=== PATIENT | female | born 1985 | race Caucasian/White ===

== ENCOUNTER → 2024-01-29 08:01 | Outpatient (REF) | payer BC, SELFPAY ==
[2024-01-29 10:17] LABS: % Basophils 0.6 % (0-2); % Eosinophils 1.6 % (0-6); % Immature Granulocytes 0.2 % (0-0.5); % Lymphocytes 29.3 % (20.5-51.1); % Monocytes 7.4 % (1.7-9.3); % Neutrophils 60.9 % (42.2-75.2); Absolute Eosinophils 0.1 10^3/uL (0-0.7); Absolute Lymphocytes 1.5 10^3/uL (1.2-3.4); Absolute Monocytes 0.4 10^3/uL (0.1-0.6); Absolute Neutrophils 3.1 10^3/uL (1.4-6.5); Hematocrit 37.9 % (37.0-47.0); Hemoglobin 13.7 g/dL (12.0-16.0); Mean Corp Hgb Conc. 36.1 g/dL (33.0-37.0); Mean Corpuscular Hgb 34.9 pg (27.0-31.0); Mean Corpuscular Volume 96.4 fL (81.0-99.0); Nucleated Red Blood Cells % 0 %; Platelet Count 206 10^3/uL (130-400); Red Blood Cell Count 3.93 10^6/uL (4.20-5.40); Red Cell Dist. Width 11.4 % (11.5-14.5)
[2024-01-29 11:01] LABS: ALT (SGPT) 25 U/L (0-35); AST (SGOT) 31 U/L (14-36); Albumin 4.9 g/dl (3.5-5.0); Alkaline Phosphatase 48 U/L (38-126); Blood Urea Nitrogen 17 mg/dl (7-17); Calcium 9.7 mg/dl (8.4-10.2); Carbon Dioxide 23 mmol/L (22-30); Chloride 103 mmol/L (98-107); Glucose 97 mg/dl (70-99); HDL Cholesterol 68 mg/dl; LDL Cholesterol, Calculated 125 mg/dl; Potassium 4.2 mmol/L (3.5-5.1); Sodium 142 mmol/L (135-145); Total Bilirubin 0.6 mg/dl (0.2-1.3); Total Cholesterol 210 mg/dl (50-199); Total Protein 7.3 g/dl (6.3-8.2); Triglyceride 87 mg/dl (10-149); Very Low Density Lipoprotein 17 mg/dl (0-30); eGFR > 60.00
[2024-01-29 11:23] LABS: TSH 1.13 uIU/ml (0.47-4.68)
== END ==
LOC: REG 08:01
PROVIDERS: ATTENDING PHYSICIAN Physician Assistant Medical
DX: Z00.00 Encounter for general adult medical examination without abnormal findings (principal)
CPT/HCPCS: 36415; 80053; 80061; 84443; 85025

== ENCOUNTER → 2024-03-26 04:45 | Outpatient (REF) | payer BC, SELFPAY ==
[2024-04-11 08:46] LABS: HPV, High Risk Not Detected; HPV, High Risk Source Cervical
== END ==
LOC: CPAP 04:45
PROVIDERS: ATTENDING PHYSICIAN Nurse Practitioner Family
DX: Z32.01 Encounter for pregnancy test, result positive (principal); Z11.51 Encounter for screening for human papillomavirus (HPV); Z11.3 Encounter for screening for infections with a predominantly sexual mode of transmission
CPT/HCPCS: 87491; 87591; 87624; G0123

== ENCOUNTER → 2024-03-31 15:34 | Outpatient (REF) | payer BC, SELFPAY ==
[2024-03-31 18:00] LABS: % Basophils 0.3 % (0-2); % Eosinophils 0.7 % (0-6); % Immature Granulocytes 0.4 % (0-0.5); % Lymphocytes 22.9 % (20.5-51.1); % Monocytes 5.8 % (1.7-9.3); % Neutrophils 69.9 % (42.2-75.2); Absolute Eosinophils 0.1 10^3/uL (0-0.7); Absolute Lymphocytes 2.1 10^3/uL (1.2-3.4); Absolute Monocytes 0.5 10^3/uL (0.1-0.6); Absolute Neutrophils 6.2 10^3/uL (1.4-6.5); Hematocrit 32.4 % (37.0-47.0); Hemoglobin 11.8 g/dL (12.0-16.0); Mean Corp Hgb Conc. 36.4 g/dL (33.0-37.0); Mean Corpuscular Hgb 33.8 pg (27.0-31.0); Mean Corpuscular Volume 92.8 fL (81.0-99.0); Mean Platelet Volume 9.1 fL (7.4-10.4); Nucleated Red Blood Cells % 0 %; Platelet Count 257 10^3/uL (130-400); Red Blood Cell Count 3.49 10^6/uL (4.20-5.40); Red Cell Dist. Width 11.4 % (11.5-14.5); White Blood Cell Count 8.9 10^3/uL (4.8-10.8)
[2024-03-31 18:06] LABS: Urine Albumin Negative (Neg - Trace); Urine Bilirubin Negative (Negative); Urine Character Clear (Clear); Urine Color Yellow; Urine Glucose Negative (Negative); Urine Ketone Negative (Negative); Urine Leukocyte 1+ (Negative); Urine Nitrite Negative (Negative); Urine Occult Blood Trace (Negative); Urine Specific Gravity 1.005 (<1.030); Urine Urobilinogen Negative (Neg - 1+)
[2024-03-31 18:28] LABS: Urine Squamous Cell 16-20 /LPF (Few)
[2024-03-31 18:29] LABS: Urine Red Blood Cell 0-2 /HPF (0-2)
[2024-03-31 18:31] LABS: Urine Bacteria Few (Negative)
[2024-03-31 18:56] LABS: Hepatitis B Surface Antigen Negative (Negative)
[2024-04-01 14:02] LABS: Glycohemoglobin (HgbA1c) 4.9 % (4.0-5.6)
[2024-04-01 23:33] LABS: Rubella Positive
[2024-04-02 11:33] LABS: HIV Combo Negative (Negative)
[2024-04-02 12:22] LABS: Syphilis/T. pallidum Ab Reflex Negative (Negative)
== END ==
LOC: REG 15:34
PROVIDERS: ATTENDING PHYSICIAN Nurse Practitioner Family; FAMILY PHYSICIAN Family Medicine
DX: Z32.01 Encounter for pregnancy test, result positive (principal); O26.859 Spotting complicating pregnancy, unspecified trimester
CPT/HCPCS: 36415; 76801; 76817; 80055; 81003; 81015; 83036; 84702; 86850; 86900; 86901; 87389

== ENCOUNTER → 2024-04-14 13:17 | Outpatient (REF) | payer BC, SELFPAY | LOC: REG 13:17 | PROVIDERS: ATTENDING PHYSICIAN Student in an Organized Health Care Education/Training Program | DX: O09.522 Supervision of elderly multigravida, second trimester (principal) | CPT/HCPCS: 36415 ==

== ENCOUNTER → 2024-04-16 16:46 | Outpatient (REF) | payer BC, SELFPAY | LOC: CLAB 16:46 | PROVIDERS: ATTENDING PHYSICIAN Dermatology | DX: L30.8 Other specified dermatitis (principal) | CPT/HCPCS: 87070; 87147; 87186; 87205 ==

== ENCOUNTER → 2024-04-21 15:49 | Outpatient (REF) | payer BC, SELFPAY | LOC: PNTC 15:49 | PROVIDERS: ATTENDING PHYSICIAN Student in an Organized Health Care Education/Training Program | DX: Z36.0 Encounter for antenatal screening for chromosomal anomalies (principal); Z36.82 Encounter for antenatal screening for nuchal translucency; O09.529 Supervision of elderly multigravida, unspecified trimester | CPT/HCPCS: 76801; 76813 ==

== ENCOUNTER → 2024-06-14 16:17 | Outpatient (REF) | payer BC, SELFPAY | LOC: PNTC 16:17 | PROVIDERS: ATTENDING PHYSICIAN Student in an Organized Health Care Education/Training Program | DX: O09.529 Supervision of elderly multigravida, unspecified trimester (principal); O34.219 Maternal care for unspecified type scar from previous cesarean delivery | CPT/HCPCS: 76811; 93976 ==

== ENCOUNTER → 2024-07-29 08:33 | Outpatient (REF) | payer BC, SELFPAY ==
[2024-07-29 10:44] LABS: % Basophils 0.3 % (0-2); % Eosinophils 0.6 % (0-6); % Immature Granulocytes 0.3 % (0-0.5); % Lymphocytes 19.4 % (20.5-51.1); % Neutrophils 73.4 % (42.2-75.2); Absolute Lymphocytes 1.4 10^3/uL (1.2-3.4); Absolute Monocytes 0.4 10^3/uL (0.1-0.6); Absolute Neutrophils 5.2 10^3/uL (1.4-6.5); Hematocrit 31.7 % (37.0-47.0); Hemoglobin 11.5 g/dL (12.0-16.0); Mean Corp Hgb Conc. 36.3 g/dL (33.0-37.0); Mean Corpuscular Hgb 34.6 pg (27.0-31.0); Mean Corpuscular Volume 95.5 fL (81.0-99.0); Mean Platelet Volume 9.3 fL (7.4-10.4); Nucleated Red Blood Cells % 0 %; Platelet Count 170 10^3/uL (130-400); Red Blood Cell Count 3.32 10^6/uL (4.20-5.40); Red Cell Dist. Width 12.5 % (11.5-14.5); White Blood Cell Count 7.1 10^3/uL (4.8-10.8)
[2024-07-29 11:45] LABS: 1 Hour after 50gm 103 mg/dl
[2024-07-30 10:56] LABS: Syphilis/T. pallidum Ab Reflex Negative (Negative)
== END ==
LOC: REG 08:33
PROVIDERS: ATTENDING PHYSICIAN Obstetrics & Gynecology; FAMILY PHYSICIAN Family Medicine
DX: Z34.93 Encounter for supervision of normal pregnancy, unspecified, third trimester (principal)
CPT/HCPCS: 36415; 82950; 85025; 86780

== ENCOUNTER → 2024-08-02 13:24 | Outpatient (REF) | payer BC, SELFPAY | LOC: PNTC 13:24 | PROVIDERS: ATTENDING PHYSICIAN Student in an Organized Health Care Education/Training Program | DX: O09.529 Supervision of elderly multigravida, unspecified trimester (principal) | CPT/HCPCS: 76816; 93976 ==

== ENCOUNTER → 2024-08-10 08:59 | Outpatient (REF) | payer BC, SELFPAY | LOC: PNTC 08:59 | PROVIDERS: ATTENDING PHYSICIAN Obstetrics & Gynecology | DX: Z34.82 Encounter for supervision of other normal pregnancy, second trimester (principal) | CPT/HCPCS: 36415; 86850; 86900; 86901; 96372; J2790 ==

== ENCOUNTER → 2024-09-14 16:20 | Outpatient (REF) | payer BC, SELFPAY | LOC: PNTC 16:20 | PROVIDERS: ATTENDING PHYSICIAN Student in an Organized Health Care Education/Training Program | DX: O09.529 Supervision of elderly multigravida, unspecified trimester (principal) | CPT/HCPCS: 76816 ==

== ENCOUNTER → 2024-10-05 13:50 | Outpatient (REF) | payer BC, SELFPAY | LOC: CLAB 13:50 | PROVIDERS: ATTENDING PHYSICIAN Obstetrics & Gynecology | DX: Z34.90 Encounter for supervision of normal pregnancy, unspecified, unspecified trimester (principal) | CPT/HCPCS: 87070 ==

== ENCOUNTER → 2024-10-11 16:25 | Outpatient (REF) | payer BC, SELFPAY | LOC: PNTC 16:25 | PROVIDERS: ATTENDING PHYSICIAN Obstetrics & Gynecology | DX: O44.40 Low lying placenta NOS or without hemorrhage, unspecified trimester (principal); O43.219 Placenta accreta, unspecified trimester | CPT/HCPCS: 76816; 93976 ==

== ENCOUNTER 2024-11-01 02:11 | Inpatient (IN) | payer BC, SELFPAY ==
[2024-11-01 02:39] VITALS: BP 99/56; BMI 30.6
[2024-11-01 02:39] LABS: % Basophils 0.3 % (0-2); % Eosinophils 0.5 % (0-6); % Immature Granulocytes 0.2 % (0-0.5); % Lymphocytes 28.6 % (20.5-51.1); % Monocytes 8.1 % (1.7-9.3); % Neutrophils 62.3 % (42.2-75.2); Absolute Lymphocytes 2.5 10^3/uL (1.2-3.4); Absolute Monocytes 0.7 10^3/uL (0.1-0.6); Absolute Neutrophils 5.5 10^3/uL (1.4-6.5); Hematocrit 34.8 % (37.0-47.0); Hemoglobin 12.7 g/dL (12.0-16.0); Mean Corp Hgb Conc. 36.5 g/dL (33.0-37.0); Mean Corpuscular Hgb 34.4 pg (27.0-31.0); Mean Corpuscular Volume 94.3 fL (81.0-99.0); Mean Platelet Volume 9.8 fL (7.4-10.4); Nucleated Red Blood Cells % 0 %; Platelet Count 182 10^3/uL (130-400); Red Blood Cell Count 3.69 10^6/uL (4.20-5.40); Red Cell Dist. Width 12.2 % (11.5-14.5); White Blood Cell Count 8.9 10^3/uL (4.8-10.8)
[2024-11-01] MEDS: SUBLIMAZE 100 MCG EPIDURAL (02:48)
[2024-11-01] MEDS: FENTANYL/BUPIVACAINE 100 EPIDURAL (02:49)
[2024-11-01] MEDS: ZOFRAN 4 MG IV (03:28)
[2024-11-01] MEDS: TYLENOL 1000 MG PO (11:54)
[2024-11-01] MEDS: BICITRA 30 ML PO (11:54)
[2024-11-01] MEDS: ANCEF 10 IV (11:54)
[2024-11-01] MEDS: ZITHROMAX INFUSION 250 IV (12:00)
[2024-11-01] MEDS: TORADOL 15 MG IV ×2 (16:41→22:59)
[2024-11-01] MEDS: ZOLOFT 50 MG PO (19:57)
[2024-11-02] MEDS: TORADOL 15 MG IV ×2 (04:30→11:46)
[2024-11-02 04:52] LABS: Hematocrit 25.6 % (37.0-47.0); Hemoglobin 9.2 g/dL (12.0-16.0); Mean Corp Hgb Conc. 35.9 g/dL (33.0-37.0); Mean Corpuscular Hgb 34.3 pg (27.0-31.0); Mean Corpuscular Volume 95.5 fL (81.0-99.0); Mean Platelet Volume 9.9 fL (7.4-10.4); Platelet Count 132 10^3/uL (130-400); Red Blood Cell Count 2.68 10^6/uL (4.20-5.40); Red Cell Dist. Width 12.5 % (11.5-14.5); White Blood Cell Count 11.5 10^3/uL (4.8-10.8)
--- NOTE | 2024-11-02 07:25 | W.PN.ANS.POP ---
Anesthesia Post Operative
- Anesthesia Post Op Note
Vital Signs Stable-See Nursing Note: Yes
Airway Patent: Yes
Adequate Pain Control: Yes
Change in Mental Status: No
Current Postoperative Nausea & Vomiting: No
Anesthesia Complications: No
General Anesthetic Recall: No
Unplanned Admission: No
Post Op Hydration Adequate: Yes
[2024-11-02 12:04] LABS: Syphilis/T. pallidum Ab Reflex Negative (Negative)
[2024-11-02] MEDS: PRENATAL PLUS 1 TABLET PO (14:14)
[2024-11-02] MEDS: FEOSOL 325 MG PO (14:15)
[2024-11-02] MEDS: SENOKOT-S 1 TABLET PO (14:15)
[2024-11-02] MEDS: TYLENOL 650 MG PO (14:22)
[2024-11-02 16:04] LABS: Hepatitis C Antibody Negative (Negative)
[2024-11-02] MEDS: PERCOCET 5/325 1 TABLET PO (16:42)
[2024-11-02] MEDS: ZOLOFT 50 MG PO (20:12)
[2024-11-02] MEDS: MOTRIN 600 MG PO (20:16)
[2024-11-03] MEDS: PERCOCET 5/325 1 TABLET PO (01:22)
[2024-11-03] MEDS: MOTRIN 600 MG PO ×4 (04:59→22:44)
[2024-11-03] MEDS: TYLENOL 650 MG PO ×3 (06:20→22:44)
[2024-11-03] MEDS: FEOSOL 325 MG PO (08:58)
[2024-11-03] MEDS: PRENATAL PLUS 1 TABLET PO ×2 (08:58)
[2024-11-03] MEDS: SENOKOT-S 1 TABLET PO (08:58)
[2024-11-03] MEDS: ZOLOFT 50 MG PO (20:27)
[2024-11-04] MEDS: PERCOCET 5/325 1 TABLET PO (03:28)
[2024-11-04] MEDS: FEOSOL 325 MG PO (07:47)
[2024-11-04] MEDS: MOTRIN 600 MG PO (07:47)
[2024-11-04] MEDS: PRENATAL PLUS 1 TABLET PO (07:47)
[2024-11-04] MEDS: TYLENOL 650 MG PO ×2 (07:47→13:06)
[2024-11-04] MEDS: SENOKOT-S 1 TABLET PO (07:52)
== END 2024-11-04 14:00 | disposition home or self-care (01) | DRG 788 ==
LOC: LDRP 02:11
PROVIDERS: Obstetrics & Gynecology; ADMITTING PHYSICIAN Student in an Organized Health Care Education/Training Program
PROC: 10D00Z1 Extraction of Products of Conception, Low, Open Approach (ICD-10-PCS; 2024-11-01)
PROC: 10907ZC Drainage of Amniotic Fluid, Therapeutic from Products of Conception, Via Natural or Artificial Opening (ICD-10-PCS; 2024-11-01)
DX: O48.0 Post-term pregnancy (principal); Z3A.40 40 weeks gestation of pregnancy; O99.344 Other mental disorders complicating childbirth; F41.9 Anxiety disorder, unspecified; O77.0 Labor and delivery complicated by meconium in amniotic fluid; O62.1 Secondary uterine inertia; Z37.0 Single live birth; O34.211 Maternal care for low transverse scar from previous cesarean delivery; N85.8 Other specified noninflammatory disorders of uterus; O26.893 Other specified pregnancy related conditions, third trimester; Z67.11 Type A blood, Rh negative
CPT/HCPCS: 88307; 36415; 85025; 85027; 86780; 86803; 86850; 86870; 86900; 86901

== ENCOUNTER 2025-03-02 06:29 | Outpatient (RCR) | payer BC, SELFPAY | END 2025-03-02 23:59 | disposition home or self-care (01) | LOC: RPT 06:29 | PROVIDERS: ATTENDING PHYSICIAN Obstetrics & Gynecology; FAMILY PHYSICIAN Family Medicine | DX: L90.5 Scar conditions and fibrosis of skin (principal); M62.89 Other specified disorders of muscle; N39.3 Stress incontinence (female) (male); Z39.2 Encounter for routine postpartum follow-up; Z73.6 Limitation of activities due to disability | CPT/HCPCS: 97163; 97530 ==

== ENCOUNTER 2025-04-05 11:46 | Outpatient (RCR) | payer BC, SELFPAY | END 2025-04-05 23:59 | disposition home or self-care (01) | LOC: RPT 11:46 | PROVIDERS: ATTENDING PHYSICIAN Obstetrics & Gynecology; FAMILY PHYSICIAN Family Medicine | DX: L90.5 Scar conditions and fibrosis of skin (principal); M62.89 Other specified disorders of muscle; N39.3 Stress incontinence (female) (male); Z39.2 Encounter for routine postpartum follow-up; Z73.6 Limitation of activities due to disability | CPT/HCPCS: 97112; 97140; 97530 ==

== ENCOUNTER 2025-04-27 17:02 | Outpatient (RCR) | payer BC, SELFPAY | END 2025-04-27 23:59 | disposition home or self-care (01) | LOC: RPT 17:02 | PROVIDERS: ATTENDING PHYSICIAN Obstetrics & Gynecology; FAMILY PHYSICIAN Family Medicine | DX: L90.5 Scar conditions and fibrosis of skin (principal); M62.89 Other specified disorders of muscle; N39.3 Stress incontinence (female) (male); Z39.2 Encounter for routine postpartum follow-up; Z73.6 Limitation of activities due to disability | CPT/HCPCS: 97110; 97112; 97140; 97530 ==